=== PATIENT | female | born 1995 | race Caucasian/White ===

== ENCOUNTER 2020-03-03 10:42 | Emergency (ER) | payer OTHER ==
[2020-03-03 10:50] VITALS: BP 114/81
--- NOTE | 2020-03-03 11:18 | ED Physician Documentation ---
PD HPI HEAD INJURY - Stated complaint Stated Complaint: HEAD INJ - Chief complaint Chief Complaint: Laceration - History obtained from History obtained from: Patient - Additional information Additional information: Patient comes emergency department complaining of a laceration to her left eyebrow after striking her head on some equipment at work. Patient states that she sustained a laceration while bending over as somebody else was lifting a piece of equipment and she struck her head on it. Patient denies loss of consciousness. She was not injured in any other way. She noticed that blood was coming from her eyebrow[place] come here. Patient denies any visual changes in her left eye. No other complaints at this time. Patient states she is up-to-date on tetanus. Review of Systems Ten Systems: 10 systems reviewed and negative Constitutional: reports: Reviewed and negative Eyes: reports: Reviewed and negative Ears: reports: Reviewed and negative Nose: reports: Reviewed and negative Throat: reports: Reviewed and negative Cardiac: reports: Reviewed and negative Respiratory: reports: Reviewed and negative GI: reports: Reviewed and negative : reports: Reviewed and negative Skin: reports: Laceration (s) Musculoskeletal: reports: Reviewed and negative Neurologic: reports: Reviewed and negative Psychiatric: reports: Reviewed and negative Endocrine: reports: Reviewed and negative Immunocompromised: reports: Reviewed and negative PD PAST MEDICAL HISTORY - Past Medical History Past Medical History: No - Present Medications Home Medications: Ambulatory Orders Medication Instructions Recorded Confirmed No Known Home Medications 03/03/20 03/03/20 - Allergies Allergies/Adverse Reactions: Allergies Allergy/AdvReac Type Severity Reaction Status Date / Time No Known Drug Allergies Allergy Verified 03/03/20 10:48 - Social History Does the pt smoke?: No Smoking Status: Never smoker PD ED PE NORMAL - Vitals Vital signs reviewed: Yes - General General: Alert and oriented X 3, No acute distress, Well developed/nourished - HEENT HEENT: PERRL, EOMI, Moist mucous membranes, Other (Patient has a 1 cm, superficial, horizontal laceration to her left eyebrow.) - Neck Neck: Supple, no meningeal sign - Respiratory Respiratory: No respiratory distress - Derm Derm: Normal color, Warm and dry, Other (1 cm horizontal left eyebrow lacerations noted above. Laceration is approximately 1 mm in depth. 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 I was unable to pry the laceration any further apart, even with irrigation, and concluded that the laceration was indeed only 1 mm in depth. I discussed the option of Dermabond with the patient, as I do not feel that the wound warrants suturing.Dermabond may provide slight benefit. The patient stated she would like to have Dermabond because the environment in which she works is dirty and she would rather have some sort of covering over the laceration until it heals. Dermabond was placed. We have discussed wound care and home management of symptoms, as well as usual indications for return Departure - Departure Disposition: 01 Home, Self Care Clinical Impression: Laceration Condition: Good Instructions: ED Laceration Facial Skin Glue
== END 2020-03-03 11:22 | disposition home or self-care (01) ==
LOC: ED 10:42
DX: S01.112A Laceration without foreign body of left eyelid and periocular area, initial encounter (principal); W22.8XXA Striking against or struck by other objects, initial encounter; Y93.89 Activity, other specified; Y92.139 Unspecified place military base as the place of occurrence of the external cause; Y99.9 Unspecified external cause status
CPT/HCPCS: 99281; 99282

== ENCOUNTER 2021-05-18 08:09 | Outpatient (CLI) | payer OTHER | END 2021-05-18 08:10 | disposition home or self-care (01) | LOC: DI 08:09 | PROVIDERS: ATTEND Physician Assistant | DX: M24.469 Recurrent dislocation, unspecified knee (principal) | CPT/HCPCS: 93306 ==